=== PATIENT | female | born 1955 | race Caucasian/White ===

== ENCOUNTER → 2023-05-05 | Outpatient (RCR) | payer MEDICARE, OTHER | END | disposition home or self-care (01) | PROVIDERS: ATTEND Family Medicine | DX: I63.9 Cerebral infarction, unspecified (principal) ==

== ENCOUNTER 2023-05-16 10:37 | Outpatient (RCR) | payer MEDICARE, OTHER | END 2023-05-16 13:56 | disposition home or self-care (01) | PROVIDERS: ATTEND Family Medicine | DX: I63.9 Cerebral infarction, unspecified (principal) ==